=== PATIENT | male | born 1955 | race Caucasian/White ===

== ENCOUNTER 2021-05-25 02:43 | Day surgery (SDC) | payer BC, SELFPAY ==
[2021-05-21 14:54] VITALS: BMI 28.2
[2021-05-25 10:09] VITALS: BP 147/91; PULSE 76; RESP 20; TEMP 36.3; O2SAT 99
[2021-05-25] MEDS: LACTATED RINGERS 1,000 ML 150 ML IV CONT (10:13)
--- NOTE | 2021-05-25 10:18 | P.PNAN_ITS ---
Anes - Initial Pre Proc Eval Procedure: Operation Date: 05/25/21 10:30 Proposed Procedures p Colonoscopy - Can Nash MD Date/Time: 05/25/21 10:18 Surgeon: Can Nash MD Pre Op Diagnosis: melena, diarrhea Patient Data Age: 65 Gender: M Height: 1.7 m Weight: 28.2 kg Last Vital Signs Temp 36.3 C L 05/25/21 10:09 Pulse 76 05/25/21 10:09 Resp 20 05/25/21 10:09 BP 147/91 H 05/25/21 10:09 Pulse Ox 99 05/25/21 10:09 Allergies Allergy/AdvReac Type Severity Reaction Status Date / Time clindamycin Allergy Intermediate Unknown Verified 05/25/21 10:07 Penicillins Allergy Unknown Unknown Verified 05/25/21 10:07 Sulfa (Sulfonamide Allergy Unknown Hives / Verified 05/25/21 10:07 Antibiotics) Red Face Home Medications Medication Instructions Recorded Confirmed Type esomeprazole magnesium 20 mg 20 mg PO DAILY 05/13/21 05/21/21 History capsule,delayed release multivitamin 1 tablet PO DAILY 05/13/21 05/21/21 History Patient hx anesthesia problems: none Family hx anesthesia problems: none Results Review: All pre-operative results and documents have been reviewed as part of the pre-operative evaluation. [facility] Past Medical History Medical History BMI 28.0-28.9,adult GERD (gastroesophageal reflux disease) Family History Family History Other Cerebrovascular accident Social History Social History Smoking status: Never smoker Alcohol intake: current Living arrangements: with family Spiritual care concerns: No Anes - Eval Final PreProcedure Day of Procedure 05/25/21 10:18 Patient weight: overweight Heart: regular rate and rhythm Lungs: clear to auscultation Airway: Mallampati scale class II Neurological: alert and oriented Last oral intake: >/= 8 hours ASA classification: II Emergent: no Anesthetic plan: proceed Anesthesia type and monitoring: general GIVS and standard monitoring Results Review: All pre-operative results and documents have been reviewed as part of the pre-operative evaluation. Informed Consent: The patient's anesthetic plan and its attendant risks and benefits were discussed with the patient/family/POA. Questions were solicited and answers provided to the satisfaction of the patient/family/POA.
--- NOTE | 2021-05-25 10:44 | PM.HPGS ---
History of Present Illness History of Present Illness Consent: Risks, benefits, and alternatives have been discussed and questions answered. Patient agrees to proceed with procedure. Chief complaint: melena, diarrhea Narrative: Alan Dillon is a 65 year old male with last colonoscopy 10 years ago, also several weeks ago took clindamycin for tooth issue then developed diarrhea for 4-5 weeks that finally resolved. Review of Systems Constitutional: Constitutional: Denies headache(s) and Denies weakness Eyes: Eyes: Denies blurry vision ENT: Reports Normal hearing present, Denies headache(s) and Denies neck pain Cardiovascular: Cardiovascular: Denies chest pain and Denies dyspnea Respiratory: Respiratory: Denies dyspnea Gastrointestinal: Gastrointestinal: Reports no additional gastrointestinal complaints Genitourinary: Genitourinary: Denies dysuria Musculoskeletal: Musculoskeletal: Denies neck pain Integumentary/Breasts: Skin/Breast: Denies dry skin Neurologic: Reports Normal hearing present, Denies headache(s) and Denies weakness Psychiatric: Psychiatric: Denies anxiety Endocrine: Endocrine: Denies change in body appearance Hematologic/Lymphatic: Hematologic/Lymphatic: Denies easy bleeding Allergic/Immunologic: Allergic/Immunologic: Denies urticaria PMF Past Medical History Medical History (Updated 05/25/21 @ 10:45 by Can Nash MD) BMI 28.0-28.9,adult Colon cancer screening GERD (gastroesophageal reflux disease) Family History Family History Other Cerebrovascular accident Social History Social History Smoking status: Never smoker Alcohol intake: current Living arrangements: with family Spiritual care concerns: No Meds Home Medications and Allergies Home Medications Medication Instructions Recorded Confirmed Type esomeprazole magnesium 20 mg 20 mg PO DAILY 05/13/21 05/21/21 History capsule,delayed release multivitamin 1 tablet PO DAILY 05/13/21 05/21/21 History Allergies Allergy/AdvReac Type Severity Reaction Status Date / Time clindamycin Allergy Intermediate Unknown Verified 05/25/21 10:07 Penicillins Allergy Unknown Unknown Verified 05/25/21 10:07 Sulfa (Sulfonamide Allergy Unknown Hives / Verified 05/25/21 10:07 Antibiotics) Red Face Vital Signs Vital Signs - 24 hr 05/25/21 10:09 Temperature 97.4 F L Pulse Rate 76 Respiratory Rate 20 Blood Pressure 147/91 H Pulse Oximetry 99 Exam Const: General: comfortable and no acute distress HENMT: General nose exam: Normal nares present Eyes: General: appearance normal, both eyes and all related structures Neck: Neck: no JVD Resp: Auscultation: clear to auscultation bilaterally Cardio: Rate: regular rate Rhythm: regular rhythm GI: Inspection: non-distended GI Palp: Yes Soft to palpation Skin: General skin exam: normal color Neuro: General: gait normal Speech: normal speech Extrem: General: normal to inspection Psych: Mental Status: mental status grossly normal Assessment and Plan Assessment and plan (1) Colon cancer screening: Code(s): Z12.11 - Encounter for screening for malignant neoplasm of colon Status: Acute Assessment and Plan: colonoscopy
[2021-05-25 11:10] VITALS: BP 100/73; PULSE 82; RESP 25; O2SAT 95
[2021-05-25 11:20] VITALS: BP 108/73; PULSE 67; RESP 17; O2SAT 96
[2021-05-25 11:30] VITALS: BP 127/80; PULSE 69; RESP 21; O2SAT 96
[2021-05-25 11:47] VITALS: BP 137/88; PULSE 58; RESP 18; O2SAT 100
--- NOTE | 2021-05-25 12:18 | SUR.PHASEII ---
At 1145, patient was getting dressed for discharge. Patient fell and Rodolfo RN, Sharif PEÑALOZA, and Guy PAIGE went into the patient's room upon hearing the fall to assess the patient. Vitals were obtained (and charted) and were stable. Patient denies hitting head or having any pain/soreness. Dr. Noriega and Dr. Carrasco saw patient and no new orders were given. Patient was cleared by both doctors for discharge. -Fide Tovar RN
== END 2021-05-25 11:48 | disposition home or self-care (01) ==
PROVIDERS: PCP Family Medicine; Visit Provider Internal Medicine Gastroenterology
PROC: 0DJD8ZZ Inspection of Lower Intestinal Tract, Via Natural or Artificial Opening Endoscopic (ICD-10-PCS; CPT 45378; principal; 2021-05-25 10:30)
DX: Z12.11 Encounter for screening for malignant neoplasm of colon (principal); K52.9 Noninfective gastroenteritis and colitis, unspecified; R19.5 Other fecal abnormalities; K21.9 Gastro-esophageal reflux disease without esophagitis
CPT/HCPCS: 45380; 88305; J2001; J2704; J7120

== ENCOUNTER → 2022-01-06 08:33 | Outpatient (CLI) | payer BC, SELFPAY ==
--- NOTE | ~2022-01-06 | XR_ITS ---
XR shoulder LT min 2V 01/06/2022 08:50 Indication: Left shoulder pain Procedure: 4 views left shoulder Comparison: No prior studies for comparison. Findings: There is anatomic alignment. No fracture, subluxation or dislocation. No significant soft t issue abnormality. No foreign bodies. Impression: 1: No significant bone or joint abnormality. Reviewed, dictated and finalized at location A. Impression: 1: No significant bone or joint abnormality.
== END ==
PROVIDERS: PCP Family Medicine; Visit Provider Nurse Practitioner Family
DX: M25.512 Pain in left shoulder (principal)
CPT/HCPCS: 73030

== ENCOUNTER → 2022-01-29 15:16 | Outpatient (CLI) | payer BC, SELFPAY ==
--- NOTE | ~2022-01-29 | MR_ITS ---
EXAMINATION: MR shoulder LT wo con DATE: 01/29/2022 15:54 INDICATION: Left shoulder pain TECHNIQUE: Magnetic resonance imaging (MRI) of the left shoulder was performed without intravenous co ntrast. Sequences included axial PD-weighted FS FSE, coronal oblique PD-weighted FS FSE, coronal obli que T2-weighted FS FSE, sagittal PD-weighted FS FSE, sagittal fluid sensitive FSE STIR and sagittal T 1-weighted SE. COMPARISON: None. FINDINGS: Coracoacromial arch: The acromion undersurface is minimally curved in morphology (type I-II). The coracoacromial ligament is normal. Mild acromioclavicular osteoarthritis. Rotator cuff: Mild supraspinatus tendinopathy but there is attenuation of the distal 2.5 cm of the supraspinatus te ndon with partial thickness articular sided tear. Most clearly defined portion of the tear measures a pproximately 5 mm AP along the superior facet footplate where it approaches full-thickness involving all but the bursal sided most fibers. There is attenuation of the tendon posterior to the region of t he tear suggesting additional less severe partial thickness tearing but without clearly defined fluid signal intensity tear defect. Moderate infraspinatus tendinopathy with and prominent thickening and mild increased signal of the distal tendon without discrete tear. The teres minor tendon is normal. M ild subscapularis tendinopathy with tiny intrasubstance tear at the superolateral aspect of the lesse r tuberosity footplate. Normal rotator cuff muscle bulk and signal. Biceps tendon, glenoid labrum and glenohumeral cartilage: Long head of the biceps tendon is normal. There is a tear at the base of the posterior inferior gleno id labrum extending from the 11:00 position superiorly to the 5:00 position inferiorly. Very small pa ra labral cyst measuring approximately 5 x 3 x 3 mm arising from the 6:00 position of the labrum. Low er grade chondromalacia with chondral swelling and mild increased signal at the superomedial aspect o f the humeral head. Fluid: Physiologic amount of fluid in the glenohumeral joint and biceps tendon sheath. No loose osteochondr al bodies. Small amount of fluid in the subacromial/subdeltoid bursa consistent with mild bursitis. Bones: Normal marrow signal with no edema, fracture or abnormal marrow replacing process. Mild cystic change at the lesser tuberosity. IMPRESSION: 1. Mild supraspinatus and moderate infraspinatus tendinopathy with small severe articular sided tear at the distal supraspinatus tendon. 2. Mild subscapularis tendinopathy with very small intrasubstance tear at the lesser tuberosity. 3. Tear of the posterior and inferior glenoid labrum with very small para labral cyst at the inferior glenoid. 4. Low-grade humeral chondral malacia with small region of chondral swelling humeral head but no sign ificant cartilage loss. 5. Mild subacromial/subdeltoid bursitis. Reviewed, dictated and finalized at location A. IMPRESSION: 1. Mild supraspinatus and moderate infraspinatus tendinopathy with small severe articular sided tear at the distal supraspinatus tendon. 2. Mild subscapularis tendinopathy with very small intrasubstance tear at the l ger tuberosity. 3. Tear of the posterior and inferior glenoid labrum with very small para dena l cyst at the inferior glenoid. 4. Low-grade humeral chondral malacia with small region of chondral swelling hu meral head but no significant cartilage loss. 5. Mild subacromial/subdeltoid bursitis.
== END ==
PROVIDERS: PCP Family Medicine; Visit Provider Nurse Practitioner Family
DX: M75.52 Bursitis of left shoulder (principal); S43.432A Superior glenoid labrum lesion of left shoulder, initial encounter; X58.XXXA Exposure to other specified factors, initial encounter
CPT/HCPCS: 73221

== ENCOUNTER 2022-03-16 00:11 | Day surgery (SDC) | payer BC, SELFPAY ==
[2022-03-09 16:01] VITALS: BMI 28.3
--- NOTE | 2022-03-09 16:17 | PC.NURSE ---
Report to the Outpatient Waiting Room, entrance under the green pavilion located off [facility], at time 0900 on date _03/16/22. OR Time: _1100_. - You and your visitor will be asked a series of questions to screen for COVID 19 for your protection. - Only one visitor is allowed at this time. - The patient visitor is requested to leave or wait in car when not with patient. - A mask is required within the hospital. Patients may have clear liquids (water, carbonated beverages, clear teas, apple juice) until 3 hours prior to surgery with a maximum of 20 ounces. - No food from midnight until time of surgery - Infants may have breast milk until 4 hours before surgery, infant formula 6 hours prior to surgery. - Children will be allowed to drink immediately following surgery. If applicable, please bring a bottle or sippy cup to assist with drinking. Juice, water, soda, and popsicles are readily available. For infants on formula, please bring formula the day of surgery. Pacifiers are allowed. Take the following medications with a SIP of water the morning of surgery: _n/a_ Medications to discontinue per physician _multivitamin 03/13/22 Date to take last dose 03/13/22 Please no make-up, nail djiboutian, hairspray, perfume, deodorant, or body powder the day of surgery. No jewelry (including any body piercings) or valuables the day of surgery, leave them at home. Please take a shower or bath the night before, or the morning of, surgery with an antibacterial soap. Wear comfortable, loose fitting clothing. Children are encouraged to wear pajamas. - Jewelry must be removed prior to entering the operating room. Rings and piercings that are not removed may be cut off. - The hospital will not accept responsibility for valuables. - Please leave all valuables, including medications, at home the day of surgery. If you are going home after surgery, a licensed class a regional truck driver must drive you home. - NO public transportation without another adult. - We recommend that an adult stay with you for 24 hours following discharge. - We also recommend that you do not drive, make important decision, drink alcoholic beverages, or take any drugs that were not prescribed by your health care provider for at least 24 hours after your discharge time. For Pediatric surgeries, we recommend two adults accompany the child home (only one inside the building at this time). Follow any additional instructions given to you from your surgeon. If you or anyone in your household have experienced Covid symptoms in the past week, please notify your surgeon or the nurse liaison at the phone number below for possible testing. Telephone instructions given to Alan Dillon and asked if any additional questions and then verbalized understanding. Patient advised to call surgeon office or pre surgery nurse liaison [phone] if any additional questions.
--- NOTE | 2022-03-15 11:32 | P.PNAN_ITS ---
Anes - Initial Pre Proc Eval Procedure: Operation Date: 03/16/22 11:00 Proposed Procedures p Left Open Rotator Cuff Repair - oRmmel Gates MD Date/Time: 03/15/22 11:32 Surgeon: Rommel Gates MD Pre Op Diagnosis: left rotator cuff tear Patient Data Age: 66 Gender: M Height: 1.7 m Weight: 82 kg Allergies Allergy/AdvReac Type Severity Reaction Status Date / Time clindamycin Allergy Intermediate Unknown Verified 03/04/22 08:55 Penicillins Allergy Unknown Unknown Verified 03/04/22 08:55 Sulfa (Sulfonamide Allergy Unknown Hives / Verified 03/04/22 08:55 Antibiotics) Red Face Home Medications Medication Instructions Recorded Confirmed Type esomeprazole magnesium 20 mg 20 mg PO DAILY 05/13/21 03/09/22 History capsule,delayed release (Nexium 24HR) multivitamin 1 tablet PO DAILY 05/13/21 03/09/22 History meloxicam 15 mg tablet 15 mg PO DAILY #30 tabs 01/28/22 03/09/22 Rx cyclobenzaprine 5 mg tablet 5 mg PO QHS PRN muscle spasm #30 03/14/22 Rx tabs Patient hx anesthesia problems: none Family hx anesthesia problems: none Results Review: All pre-operative results and documents have been reviewed as part of the pre- operative evaluation. [facility] Past Medical History Medical History Allergies BMI 28.0-28.9,adult BMI 29.0-29.9,adult Colon cancer screening GERD (gastroesophageal reflux disease) Left rotator cuff tear Family History Family History Father Cerebrovascular accident Social History Social History Smoking status: Never smoker Alcohol intake: current Substance use: never Living arrangements: with family Additional occupation/education comments: [employer] Spiritual care concerns: No Anes - Eval Final PreProcedure Day of Procedure 03/15/22 11:32 Patient weight: overweight Heart: regular rate and rhythm Lungs: clear to auscultation Airway: Mallampati scale class II Neurological: alert and oriented Last oral intake: >/= 8 hours ASA classification: II Emergent: no Anesthetic plan: proceed Anesthesia type and monitoring: general ETT and standard monitoring Results Review: All pre-operative results and documents have been reviewed as part of the pre- operative evaluation. Informed Consent: The patient's anesthetic plan and its attendant risks and benefits were discussed with the patient/family/POA. Questions were solicited and answers provided to the satisfaction of the patient/family/POA.
--- NOTE | 2022-03-15 11:34 | WPDANESPNB ---
Anes - Peripheral Nerve Block Date/Time: 03/15/22 11:34 I have discussed with the patient/family/POA the placement of a peripheral nerve block for post-operative pain management, including associated risks, benefits, complications, and side effects. Alternative methods of post-operative analgesia were detailed. Questions were solicited and answers provided to the satisfaction of the patient/family/POA. Time-Out: A pre-procedural Time-Out was completed immediately before starting the procedure and confirmed: Patient Identification, Site, Procedure, Patient Position and the Availability of Requisite Equipment. Clinical Indications: Acute post-operative pain management requested by the operative surgeon. Nerve Block Insertion Note Needle: 22 gauge, stimulating, insulated echogenic needle.
[2022-03-16] VITALS (8 sets, daily range): BP systolic 158–189; BP diastolic 87–102; PULSE 67–88; RESP 14–18; TEMP 36.1–37.1; O2SAT 95–100
[2022-03-16] MEDS: KETOROLAC 15 MG/ML VIAL (*BKC) IV PUSH (10:02)
[2022-03-16] MEDS: ACETAMINOPHEN 500 MG TABLET 1000 MG PO (10:02)
[2022-03-16] MEDS: LACTATED RINGERS 1,000 ML 30 ML IV CONT ×2 (10:03→12:26)
--- NOTE | 2022-03-16 10:10 | WPDHPUPDATE1 ---
History and Physical Update Update Date/Time: 03/16/22 10:10 History and Physical has been reviewed, including an updated exam of the patient. There are NO changes in the patient's condition. Risks, benefits, and alternatives have been discussed and questions answered. Patient agrees to proceed with procedure.
--- NOTE | 2022-03-16 10:38 | WPDANESPNB ---
Anes - Peripheral Nerve Block Date/Time: 03/16/22 10:38 I have discussed with the patient/family/POA the placement of a peripheral nerve block for post-operative pain management, including associated risks, benefits, complications, and side effects. Alternative methods of post-operative analgesia were detailed. Questions were solicited and answers provided to the satisfaction of the patient/family/POA. Time-Out: A pre-procedural Time-Out was completed immediately before starting the procedure and confirmed: Patient Identification, Site, Procedure, Patient Position and the Availability of Requisite Equipment. Clinical Indications: Acute post-operative pain management requested by the operative surgeon. Nerve Block Insertion Note Anes-nerve block: interscalene left Patient position: supine Skin prep: chlorhexidine Needle: 22 gauge, stimulating, insulated echogenic needle. Needle length: 50 mm Technique: ultrasound Injectate: bupivacaine 0.5% with epi 5 mcg/ml (30cc- no epi) Observations: tolerated well Complications: none Procedure start time:: 1030 Procedure end time:: 1034
[2022-03-16] MEDS: ceFAZolin 2 GM/D5W 50 ML 2 GM/50 ML BAG IVPB (11:02)
[2022-03-16] MEDS: BUPIVACAINE/EPINEPHRINE 0.25% 50 ML VIAL 20 ML INFILTRATE (11:37)
--- NOTE | 2022-03-16 12:27 | P.OP_ITS ---
Procedure Note - Detailed Date of Procedure 03/16/22 Pre-op Diagnosis left rotator cuff tear Post-op Diagnosis Same Procedure Performed Left rotator cuff repair Surgeon Rommel Gates MD Curb Machine Operator Donte Tompkins Anesthesia General and Regional Description of Procedure Patient was identified and proper site identified. In the preop holding area the anesthesia team performed a left extremity block. He was then taken to the operating room and transferred to the or table taking care to pad the torso and extremities. After general anesthetic induction and intubation, hewas put in a semi beach chair position in the usual manner for a left shoulder procedure. His head was secured taking care to neither rotate nor extend the head and neck. The left upper extremity was prepped and draped free in usual sterile fashion. The subcutaneous tissue in the area of the incision was injected with 10 cc of 0.25% Marcaine and epinephrine solution. An oblique anterior incision was made extending from the AC joint distally in line with the fibers of the deltoid. Subcutaneous tissue was sharply dissected down to the deltoid fascia. The deltoid was dissected off the anterior portion of the acromion in the distal end of the clavicle. A 2 cm split was made at the junction between the anterior and middle thirds of the deltoid. The saw was used to perform the acromioplasty and then the undersurface of the acromion was rasped smooth. There was an abundance thickened adherent bursa which was sharply debrided allowing for visualization of the cuff. There was an erosive tear along with spurring at the greater tuberosity. The spur was debulked in tuberosity prepared for the repair. Tendon edges were freshened up. Tendon was repaired side to side with 2. Ethibond suture in the 2. Ethibond was also used to secure the repaired tendon back down to the prepared tuberosity. This gave a reina repair which was stable as the shoulder was taken through range of motion. The wound was irrigated with sterile NaCl solution. The deltoid was repaired back to the acromion with 2. Ethibond suture passed through bone and the remainder of the deltoid repair carried out with 2. Vicryl. Subcutaneous tissue was reapproximated with 2. Strata fix and then tissue adhesive used for the skin. Sterile dressing was applied. There were no known intraoperative complications, and perioperative antibiotics were administered. Estimated Blood Loss 20 Drains No Packing No Pathology None sent Complications No immediate complications Condition Stable Disposition PACU
[2022-03-16] MEDS: hydrALAZINE HCL 20 MG/ML VIAL 5 MG IV PUSH ×2 (14:05→14:16)
--- NOTE | 2022-03-16 14:30 | SUR.PHASEII ---
Dr. Herzog aware of elevated BP and is okay sending patient home.
== END 2022-03-16 14:44 | disposition home or self-care (01) ==
PROVIDERS: PCP Family Medicine; Visit Provider Orthopaedic Surgery
PROC: (CPT 23420; principal; 2022-03-16 11:00)
DX: M75.102 Unspecified rotator cuff tear or rupture of left shoulder, not specified as traumatic (principal); G89.18 Other acute postprocedural pain; K21.9 Gastro-esophageal reflux disease without esophagitis; M75.52 Bursitis of left shoulder
CPT/HCPCS: 64415; 23412; A4565; A9270; J0360; J0690; J1100; J1885; J2250; J2405; J2704; J2710; J3010; J7120

== ENCOUNTER 2022-06-08 09:00 | Outpatient (RCR) | payer BC, SELFPAY ==
[2022-03-18 08:41] VITALS: BP_SYST 80
--- NOTE | 2022-03-18 09:22 | PTOPEVAL ---
PHYSICAL THERAPY EVALUATION AND PLAN OF CARE Thank you for referring Alan Dillon to [facility].? The patient is scheduled to be seen for therapy? 2x/week for 6weeks. Please review, sign, date and return this plan of care LAURO. I agree with and certify that the following plan of care is medically necessary. Referring Physician Date Attending Provider: Rommel Gates MD Diagnosis left rotator cuff repair Onset 03/16/22 Subjective Information states that he is doing well. Query Text:As Reported By Patient/ Nerve block wore off yesterday Family and has been working on pain management. Has been icing the shoulder. Self Report Pain Assessment Left Shoulder(s) Reported Pain Level 4 Pain Description Aching Scapular/ Shoulder Range of Motion Left Shoulder Flexion - Passive 95 Shoulder Abduction - Passive 80 Shoulder Lateral Rotation - Passive 30 Palpation edema and bruising noted to biceps region and anterior shoulder; incision site healing well, no drainage PT Clinical Summary Alan is a 66 yo male 2 days s /p left rotator cuff repair. He has decreased ROM and limited strength secondary to procedure. He requires skilled physical therapy to progress through phases of rehabilitation to and provide appropriate education for successful outcome. He toleated initial treatment very well today.
[2022-04-29 08:59] VITALS: BP_SYST 130
--- NOTE | 2022-04-29 10:08 | PTOPPROG ---
Assessment and note entered by Heydi Muniz, PT, DPT Evaluation Information Assessment Status Progress Diagnosis L TRC tear Onset 03/18/22 Subjective Information Pt states he is doing well and has well controlled pain. Per surgeon need to focus on improving ROM. Pt reports good compliance with his HEP. Assessment PT Clinical Summary Alan presents to therapy today for his progress report following 12 visits of skilled therapy to treat his L RTC repair on 03/16/22. Today he demonstrates good strength within his available range. He has decreased AROM and PROM with active being limited to 105 deg of flexion and 85 deg of scaption. He reports good compliance with his HEP and reports well controlled pain. Continuation of skilled physical therapy services are indicated to progress ROM, to improve functional mobility, and to return to baseline. Plan of Care Interventions Electrical Stimulation,Hot Pack/Cold Pack,Manual Therapy,Neuro Re-education,Patient/Caregiver Educati,Therapeutic Activities,Therapeutic Exercise PT Services Indicated Yes Treatment Frequency and 2x/wk for 5 wks Duration These treatments will address the objective and functional deficits as defined above. The patient will be advanced safely and appropriately in order for the patient to progress towards his/her prior level of function. Additional exercises will be introduced and as well as a comprehensive home exercise program upon discharge, if needed, ?to ensure carryover of functional gains achieved in the clinic. This treatment plan has been reviewed and agreement upon by the patient.
--- NOTE | 2022-05-27 10:44 | PCPTNOTE ---
Patient requested to cancel today's scheduled visit. Patient stated that he would come to next scheduled visit.
[2022-06-08 09:02] VITALS: BP_SYST 138
--- NOTE | 2022-06-08 09:55 | PTOPDC ---
Assessment and note entered by Heydi Muniz, PT, DPT Evaluation Information Assessment Status Discharge Diagnosis L TRC tear Onset 03/18/22 Subjective Information Pt states he feels like his shoulder is doing good . He states he is sleeping better and just has some occasional stiffness in the morning. Pt reports 100% improvement in overall symptoms. Reported Pain Level Pain Score 0: Self Report Assessment PT Clinical Summary Alan presents to therapy today for his progress report 21 visits of skilled therapy to treat his L TRC repair on 03/16/22. Today he demonstrates active flexion to 120 and active abduction 130, passive ROM he is able to get to 150 deg of each. He continues to be most limited in his int and ext rot ROM both actively and passively. He demonstrates strength that is 95% of his uninvolved side. Pt reports excellent compliance with his HEP and would like to be discharged at this time. Agreeable with this POC. Plan of Care PT Services Indicated No Treatment Frequency and to be discharged Duration
== END 2022-06-08 11:18 | disposition home or self-care (01) ==
LOC: ANHPT 09:00
PROVIDERS: PCP Family Medicine; Visit Provider Orthopaedic Surgery
DX: Z48.89 Encounter for other specified surgical aftercare (principal); Z98.890 Other specified postprocedural states
CPT/HCPCS: 97110; 97112; 97140; 97161